=== PATIENT | female | born 2000 | race African-American/Black ===

== ENCOUNTER 2024-08-04 07:16 | Emergency (ER) | payer MEDICAID ==
[~2024-08-04] VITALS: Ht 170.2 cm; Wt 85.0 kg
[2024-08-04 07:44] VITALS: O2SAT 100
[2024-08-04 10:19] VITALS: TEMP 36.83628; O2SAT 100
[2024-08-04] MEDS ORDERED: IBUP-2029 MT (10:20)
[2024-08-04 10:44] VITALS: BP 120/69; PULSE 73; RESP 17
[2024-08-04] MEDS: IBUPROFEN 600MG TABLET PO ONE (10:44)
== END 2024-08-04 10:47 | disposition home or self-care (01) ==
LOC: ER 07:16
DX: N63.0 Unspecified lump in unspecified breast (principal)
CPT/HCPCS: 76641; 81025; 99284